=== PATIENT | female | born 1975 | race Two or more races ===

== ENCOUNTER 2020-03-31 00:07 | Emergency (ER) | payer BC ==
[~2020-03-31] VITALS: Ht 167.6 cm; Wt 75.3 kg
[2020-03-31] MEDS ORDERED: LORazepam 0.5 MG TAB PO ONE (02:15)
[2020-03-31 02:24] LABS: Basophils # (auto) 0 10 ^3/uL (0-0.2); Basophils % (auto) 0.4 % (0.0-2.0); Eosinophils # (auto) 0.2 10 ^3/uL (0-0.8); Lymphocytes % (auto) 20.3 % (10.0-50.0); Mean Corpuscular Hemoglobin 30.1 pg (28.0-32.0); Mean Corpuscular Hgb Conc. 34.3 g/dL (32.0-36.0); Mean Corpuscular Volume 87.6 fL (80.0-100.0); Monocytes # (auto) 0.5 10 ^3/uL (0-1.3); Monocytes % (auto) 5.3 % (0.0-12.0); Platelet Count (auto) 243 10^3/uL (140-450); Red Blood Cells 4.33 10^6/uL (4.0-5.20); White Blood Cell 9.7 10^3/uL (4.4-10.8)
[2020-03-31 02:41] LABS: Albumin 3.4 g/dL (3.4-5.0); Anion Gap 8 (5-15); BUN/Creatinine Ratio 11.7; Blood Urea Nitrogen 9 mg/dL (7-18); Calcium 8.1 mg/dL (8.5-10.1); Carbon Dioxide 25 mmol/L (21-32); Chloride 104 mmol/L (98-107); GFR African American 104 mL/min; GFR Non-African American 86 mL/min; Glucose 111 mg/dL (74-106); Magnesium 2.3 mg/dL (1.6-2.6); Potassium 3.4 mmol/L (3.5-5.1); Sodium 137 mmol/L (136-145)
[2020-03-31 02:46] LABS: Alanine Aminotransferase 30 U/L (13-56); Alkaline Phosphatase 103 U/L (45-117); Aspartate Aminotransferase 20 U/L (15-37); Bilirubin, Total 0.3 mg/dL (0.2-1.0); Total Protein 6.9 g/dL (6.4-8.2)
[2020-03-31 03:01] LABS: INR 0.95 (0.9-1.15); Partial Thromboplastin Time 28.6 sec (23.0-31.2)
[2020-03-31 03:58] LABS: Urine Bacteria FEW /hpf (None Seen); Urine Blood Negative /uL (Negative); Urine Mucus FEW (None Seen); Urine Specific Gravity 1.026 (1.001-1.035); Urine WBC 2 /hpf (0 - 5)
[2020-03-31 06:03] VITALS: BP 124/72
== END 2020-03-31 06:00 | disposition home or self-care (01) ==
LOC: EDBD 00:07 → ER 00:10
DX: F41.9 Anxiety disorder, unspecified (principal); R07.2 Precordial pain; Z20.822 Contact with and (suspected) exposure to COVID-19
CPT/HCPCS: 36415; 71045; 72125; 80053; 81001; 83735; 83880; 84443; 84484; 85025; 85379; 85610; 85730; 87426; 93005; 99285; C9803; U0003